=== PATIENT | female | born 1960 | race Caucasian/White ===

== ENCOUNTER 2016-12-21 11:13 | Emergency (ER) | payer OTHER ==
[~2016-12-21] VITALS: Ht 167.6 cm; Wt 87.1 kg
[2016-12-21] MEDS ORDERED: IV NORMAL SALINE 1,000ML 1,000 ML IV SCH (11:25)
--- NOTE | 2016-12-21 11:30 | ED.ADGEN ---
Past History Past Medical History: Diabetes Past Surgical History: Hysterectomy, Knee Replacement, Other Alcohol Use: None Drug Use: None Adult General HPI HPI Patient is a 56-year-old woman, history of type 2 diabetes mellitus managed with metformin, who presents the emergency department with a complaint of abdominal pain worsening since yesterday. Patient states that yesterday the pain began in her mid abdominal region, but slowly began to move downward to her right lower quadrant. She states the pain has become much more intense, associated with nausea and vomiting, and with a fever yesterday. She states that she does have pain with motion. She denies any chest pain, any shortness of breath, any focal weakness, numbness, tingling, rashes, sick contacts or exposures, ingestions or injuries. No urinary complaints. Last bowel movement was this morning and was normal. Patient is status post hysterectomy, 22 years ago, but is uncertain if her appendix was removed at that time. Review of Systems Review of Systems Constitutional: Fever. Subjective yesterday. Eyes: Denies change in visual acuity, redness, or eye pain [] HENT: Denies nasal congestion or sore throat [] Respiratory: Denies cough or shortness of breath [] Cardiovascular: No additional information not addressed in HPI [] GI: Abdominal pain, localizing to the right lower quadrant associated with nausea, vomiting, fever. : Denies dysuria or hematuria [] Musculoskeletal: Denies back pain or joint pain [] Integument: Denies rash or skin lesions [] Neurologic: Denies headache, focal weakness or sensory changes [] Endocrine: Denies polyuria or polydipsia [] Current Medications Current Medications Current Medications Medications (Trade) Dose Ordered Sig/Jadyn Start Time Stop Time Status Last Admin Dose Admin Fentanyl Citrate (Fentanyl 2ml Vial) 50 mcg PRN Q15MIN PRN 12/21/16 11:30 12/22/16 11:29 12/21/16 14:14 50 MCG Iohexol (Omnipaque 300 Mg/ml) 75 ml 1X ONCE 12/21/16 11:45 12/21/16 11:46 DC 12/21/16 12:13 75 ML Ondansetron HCl (Zofran) 4 mg 1X ONCE 12/21/16 14:10 12/21/16 14:12 DC Piperacillin Sod/ Tazobactam Sod (Zosyn Per Pharmacy) 1 each PRN DAILY PRN 12/21/16 12:45 Piperacillin Sod/ Tazobactam Sod (Zosyn) 3.375 gm STK-MED ONCE 12/21/16 12:47 12/21/16 12:48 DC Piperacillin Sod/ Tazobactam Sod 3.375 gm/Sodium Chloride 50 ml @ 100 mls/hr 1X ONCE 12/21/16 13:00 12/21/16 13:29 DC 12/21/16 12:54 100 MLS/HR Sodium Chloride 50 ml @ As Directed STK-MED ONCE 12/21/16 12:47 12/21/16 12:48 DC Allergies Allergies Allergies Coded Allergies Type Severity Reaction Last Updated Verified No Known Drug Allergies 12/21/16 No Physical Exam Physical Exam Constitutional: Well developed, well nourished, no acute distress, non-toxic appearance. [] HENT: Normocephalic, atraumatic, bilateral external ears normal, oropharynx moist, no oral exudates, nose normal. [] Eyes: PERRLA, EOMI, conjunctiva normal, no discharge. [] Neck: Normal range of motion, no tenderness, supple, no stridor. [] Cardiovascular:Heart rate regular rhythm, no murmur, S1, S2, no rubs or gallops. [] Lungs & Thorax: Bilateral breath sounds clear to auscultation, no wheezing, rhonchi, rales. No chest wall crepitus or tenderness. [] Abdomen: Bowel sounds present, soft, well-healed surgical incisions noted from hysterectomy, positive tenderness at McBurney's point, patient with positive Rovsing sign, positive rebound and guarding, no rigidity, no masses, no pulsatile masses. [] Skin: Warm, dry, no erythema, no rash. [] Back: No tenderness, no CVA tenderness. [] Extremities: No tenderness, no cyanosis, no clubbing, ROM intact, no edema. [] Neurologic: Alert and oriented X 3, normal motor function, normal sensory function, no focal deficits noted. [] Psychologic: Affect normal, judgement normal, mood normal. [] Current Patient Data Vital Signs Vital Signs Date Time Temp Pulse Resp B/P (MAP) Pulse Ox O2 Delivery O2 Flow Rate FiO2 12/21/16 14:14 16 98 12/21/16 12:26 73 153/54 (87) Room Air 12/21/16 11:22 98.2 Lab Results Laboratory Tests Test 12/21/16 11:29 White Blood Count 15.5 x10^3/uL (4.0-11.0) H Red Blood Count 4.94 x10^6/uL (3.50-5.40) Hemoglobin 14.9 g/dL (12.0-15.5) Hematocrit 43.9 % (36.0-47.0) Mean Corpuscular Volume 89 fL (79-100) Mean Corpuscular Hemoglobin 30 pg (25-35) Mean Corpuscular Hemoglobin Concent 34 g/dL (31-37) Red Cell Distribution Width 13.0 % (11.5-14.5) Platelet Count 229 x10^3/uL (140-400) Neutrophils (%) (Auto) 81 % (31-73) H Lymphocytes (%) (Auto) 13 % (24-48) L Monocytes (%) (Auto) 6 % (0-9) Eosinophils (%) (Auto) 0 % (0-3) Basophils (%) (Auto) 0 % (0-3) Neutrophils # (Auto) 12.6 x10^3uL (1.8-7.7) H Lymphocytes # (Auto) 2.0 x10^3/uL (1.0-4.8) Monocytes # (Auto) 0.9 x10^3/uL (0.0-1.1) Eosinophils # (Auto) 0.1 x10^3/uL (0.0-0.7) Basophils # (Auto) 0.0 x10^3/uL (0.0-0.2) Urine Collection Type Unknown Urine Color Yellow Urine Clarity Clear Urine pH 7.0 Urine Specific Viola 1.020 Urine Protein Neg (NEG-TRACE) Urine Glucose (UA) 100 mg/dL (NEG) Urine Ketones (Stick) Neg mg/dL (NEG) Urine Blood Mod (NEG) Urine Nitrite Neg (NEG) Urine Bilirubin Neg (NEG) Urine Urobilinogen Dipstick 2 mg/dL (0.2 mg/dL) Urine Leukocyte Esterase Neg (NEG) Urine RBC 6-10 /HPF (0-2) Urine WBC Occ /HPF (0-4) Urine Squamous Epithelial Cells Few /LPF Urine Transitional Epithelial Cells Occ /LPF Urine Bacteria 0 /HPF (0-FEW) Urine Mucus Slight /LPF Sodium Level 137 mmol/L (136-145) Potassium Level 3.8 mmol/L (3.5-5.1) Chloride Level 101 mmol/L (98-107) Carbon Dioxide Level 27 mmol/L (21-32) Anion Gap 9 (6-14) Blood Urea Nitrogen 10 mg/dL (7-20) Creatinine 1.0 mg/dL (0.6-1.0) Estimated GFR (Cockcroft-Gault) 57.8 BUN/Creatinine Ratio 10 (6-20) Glucose Level 199 mg/dL (70-99) H Calcium Level 9.0 mg/dL (8.5-10.1) Total Bilirubin 0.8 mg/dL (0.2-1.0) Aspartate Amino Transferase (AST) 16 U/L (15-37) Alanine Aminotransferase (ALT) 23 U/L (14-59) Alkaline Phosphatase 72 U/L (46-116) Total Protein 7.7 g/dL (6.4-8.2) Albumin 4.1 g/dL (3.4-5.0) Albumin/Globulin Ratio 1.1 (1.0-1.7) Lipase 73 U/L (73-393) EKG EKG EC: Sinus rhythm, heart rate 71 bpm, upright axis, QTC of 400, CO 146, QRS of 84, T-wave flattening noted in lead 3, no ST elevations or depressions, no other abnormalities identified. As interpreted by me. No prior for comparison. Radiology/Procedures Radiology/Procedures [][address] [address] IMAGING REPORT Signed PATIENT: MARINA GONCALVES ACCOUNT: [id number] : 1960 LOCATION: ER AGE: 56 SEX: F EXAM STATUS: REG ER ORD. PHYSICIAN: ALPHONSO VALLEJO DO REASON: RLQ pain/n/v/fever PROCEDURE: CT ABD PELV W/ IV CONTRST ONLY Indication: Right lower quadrant pain with fever and vomiting. Axial imaging through the abdomen and pelvis was performed after the administration of intravenous contrast. The lung bases are clear. There is a large hiatal hernia. The liver contains 2 low densities which are indeterminate within the right lobe. The smaller lesion is anteriorly located measuring 1.4 cm. The more posterior lesion is 2.5 cm. No ductal dilatation is seen. The gallbladder is unremarkable. The pancreas and spleen are unremarkable. No adrenal mass is detected. Kidneys are unremarkable. Aorta is nonaneurysmal. Inflammatory changes are identified in the right lower quadrant. The appendix appears to be thick-walled and dilated. There is periappendiceal inflammation and findings are consistent with acute appendicitis. No fluid collection or abscess is seen. No bowel obstruction. The bladder is unremarkable. Impression: 1. Findings consistent with acute appendicitis. There is no evidence of abscess formation or bowel obstruction. 2. Indeterminate liver lesions. Liver ultrasound could be performed on a nonemergent basis for further characterization. DICTATED AND SIGNED BY: EARNEST AGUAYO MD DATE: 12/21/16 1224 CC: JENNIFER DUKE APRN; ALPHONSO VALLEJO DO ~ Course & Med Decision Making Course & Med Decision Making Pertinent Labs and Imaging studies reviewed. (See chart for details) CT of abdomen and pelvis reveals evidence consistent with acute appendicitis, nonperforated. Patient with a leukocytosis of 15.5, electrolytes and renal function within normal limits. I did discuss findings with patient at bedside, she is agreeable for transfer to [facility] for surgical intervention, patient initiated on Zosyn in the emergency department without issue. I spoke with Dr. Dotson of general surgery, who requests to be contacted when the ambulance leads and the emergency department, plan to take the patient to the OR upon arrival at [facility]. I spoke with Dr. Mitchell of internal medicine, patient was accepted to her service as a full admission to the medical telemetry floor, with plan for surgical intervention symptom management and monitoring. Patient transported from the emergency department via EMS without issue. Final Impression Final Impression [] Problems: Dragon Disclaimer Dragon Disclaimer This electronic medical record was generated, in whole or in part, using a voice recognition dictation system. Departure: Impression: Primary Impression: Acute appendicitis Disposition: XFER OTHER Condition: IMPROVED ALPHONSO VALLEJO DO Dec 21, 2016 11:30
[2016-12-21] MEDS: fentaNYL PF 100 MCG/2 ML VIAL IV PRN ×3 (11:44→14:14)
[2016-12-21] MEDS ORDERED: IOHEXOL 300 MG/ML 75 ML VIAL. IV ONE (11:45)
--- NOTE | 2016-12-21 11:51 | EKG ---
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 RI6.01 Unconfirmed report No previous ECG available for comparison Electronically Signed On 12-24-2016 9:52:23 CDT by Lamont Mclaughlin
[2016-12-21 11:56] LABS: BASO % 0 % (0-3); EOS # 0.1 x10^3/uL (0.0-0.7); EOS % 0 % (0-3); HEMATOCRIT 43.9 % (36.0-47.0); HEMOGLOBIN 14.9 g/dL (12.0-15.5); LYMPH % 13 % (24-48); MEAN CORPUSCULAR HEMOGLOBIN 30 pg (25-35); MEAN CORPUSCULAR HGB CONC 34 g/dL (31-37); MEAN CORPUSCULAR VOLUME 89 fL (79-100); MONO # 0.9 x10^3/uL (0.0-1.1); MONO % 6 % (0-9); NEUT # 12.6 x10^3uL (1.8-7.7); NEUT % 81 % (31-73); PLATELET COUNT 229 x10^3/uL (140-400); RED BLOOD COUNT 4.94 x10^6/uL (3.50-5.40); WHITE BLOOD COUNT 15.5 x10^3/uL (4.0-11.0)
[2016-12-21 12:00] LABS: BILIRUBIN,URINE NEG (NEG); CLARITY,URINE CLEAR; COLOR,URINE YELLOW; GLUCOSE,URINE 100 mg/dL (NEG); NITRITE,URINE NEG (NEG); UROBILINOGEN,URINE 2 mg/dL (0.2 mg/dL)
[2016-12-21] MEDS ORDERED: ONDANSETRON PF 4 MG/2 ML VIAL. IV ONE ×2 (12:00→14:10)
[2016-12-21 12:01] LABS: BACTERIA,URINE 0 /HPF (0-FEW); SQUAMOUS EPITHELIAL CELL,UR FEW /LPF; WBC,URINE OCC /HPF (0-4)
[2016-12-21 12:03] LABS: ALBUMIN 4.1 g/dL (3.4-5.0); ALBUMIN/GLOBULIN RATIO 1.1 (1.0-1.7); GFR 57.8; POTASSIUM 3.8 mmol/L (3.5-5.1); TOTAL BILIRUBIN 0.8 mg/dL (0.2-1.0); TOTAL PROTEIN 7.7 g/dL (6.4-8.2)
[2016-12-21 12:26] VITALS: BP 153/54
--- NOTE | 2016-12-21 12:31 | RAD ---
Indication: Right lower quadrant pain with fever and vomiting. Axial imaging through the abdomen and pelvis was performed after the administration of intravenous contrast. The lung bases are clear. There is a large hiatal hernia. The liver contains 2 low densities which are indeterminate within the right lobe. The smaller lesion is anteriorly located measuring 1.4 cm. The more posterior lesion is 2.5 cm. No ductal dilatation is seen. The gallbladder is unremarkable. The pancreas and spleen are unremarkable. No adrenal mass is detected. Kidneys are unremarkable. Aorta is nonaneurysmal. Inflammatory changes are identified in the right lower quadrant. The appendix appears to be thick-walled and dilated. There is periappendiceal inflammation and findings are consistent with acute appendicitis. No fluid collection or abscess is seen. No bowel obstruction. The bladder is unremarkable. Impression: 1. Findings consistent with acute appendicitis. There is no evidence of abscess formation or bowel obstruction. 2. Indeterminate liver lesions. Liver ultrasound could be performed on a nonemergent basis for further characterization.
[2016-12-21] MEDS ORDERED: PIP/TAZO PER PHARMACY MC PRN (12:45)
[2016-12-21] MEDS ORDERED: PIPERACILLIN/TAZOBACTAM 3.375 GM VIAL IV ONE (12:47)
[2016-12-21] MEDS ORDERED: IV NORMAL SALINE 50ML 50 ML ONE (12:47)
[2016-12-21] MEDS ORDERED: PIPERACILLIN/TAZOBACTAM 3.375 GM in IV NORMAL SALINE 50ML 50 ML IV ONE (13:00)
== END 2016-12-21 14:15 | disposition short-term general hospital (02) ==
LOC: ER 11:13
DX: K35.80 Unspecified acute appendicitis (principal); E11.9 Type 2 diabetes mellitus without complications; Z90.49 Acquired absence of other specified parts of digestive tract
CPT/HCPCS: 36415; 74177; 80053; 81001; 83690; 85027; 93005; 96361; 96365; 96375; 96376; 99285; J2405; J2543; J3010; Q9967; J7030

== ENCOUNTER → 2018-06-01 | Outpatient (CLI) | payer OTHER ==
[~2018-06-01] MED LIST: IOHEXOL 240 MG/ML 50ML VIAL. ONE; IOHEXOL 300 MG/ML 75 ML VIAL. IV ONE
[2018-06-01 09:55] LABS: CALCIUM 9.4 mg/dL (8.5-10.1); GFR 57.6; POTASSIUM 4.1 mmol/L (3.5-5.1)
--- NOTE | 2018-06-01 14:07 | RAD ---
PQRS Compliance statement: One or more of the following individualized dose reduction techniques were utilized for this examination: 1. Automated exposure control. 2. Adjustment of the mA and/or kV according to patient size. 3. Use of iterative reconstruction technique. Indication:Ventral hernia, umbilical pain TECHNIQUE: CT abdomen and pelvis with IV contrast with multiplanar reformats. COMPARISON: 12/21/2016 FINDINGS: Heart is normal in size. No pericardial or pleural effusion. Clear lung bases. Moderate sliding hiatal hernia. Diffuse hepatic steatosis. Spleen, gallbladder, pancreas, adrenals and kidneys are within normal limits. No enlarged retroperitoneal or pelvic adenopathy. No free pelvic fluid or ascites. No bowel obstruction. Urinary bladder within normal limits. Status post hysterectomy. Umbilical and supraumbilical omental fat-containing multiple contiguous and noncontiguous hernias are seen which are new from previous exam from December 2016. The medical hernia measures 2.9 x 3.6 cm with neck measuring 1.5 cm. The supraumbilical hernia measures approximately 6.7 x 1.8 cm (transverse, AP) with neck measuring 4.5 cm. No herniation of bowel loops seen. No pneumatosis intestinalis. No suspicious bony lesion. IMPRESSION: 1. Recurrence of umbilical fat-containing hernia as described above. 2. Hepatic steatosis. 3. Moderate sliding hiatal hernia. Electronically signed by: Carl Hooker DO (06/01/2018 2:04 PM) [id number]
== END | disposition home or self-care (01) ==
LOC: CT 09:04
PROVIDERS: ATTEND Surgery
DX: K42.9 Umbilical hernia without obstruction or gangrene (principal); K76.0 Fatty (change of) liver, not elsewhere classified; K44.9 Diaphragmatic hernia without obstruction or gangrene; Z90.710 Acquired absence of both cervix and uterus
CPT/HCPCS: 36415; 74177; 80048; Q9966; Q9967

== ENCOUNTER → 2020-05-01 | Outpatient (CLI) | payer OTHER ==
--- NOTE | 2020-05-02 13:17 | RAD ---
DATE: 05/01/2020 8:43 AM EXAM: DIGITAL SCREEN BILAT W/CAD HISTORY: Screening COMPARISON: 10/13/2014 Bilateral full field craniocaudal and mediolateral oblique images were obtained using digital technique. Bilateral X CCL views were also obtained. This study was interpreted with the benefit of Computerized Aided Detection (CAD). FINDINGS: Breast Density: SCATTERED The breast parenchyma shows scattered fibroglandular densities. Breast parenchyma level B No suspicious masses, microcalcifications or architectural distortion is present to suggest malignancy in either breast. The visualized axillae are unremarkable. IMPRESSION: No mammographic evidence of malignancy. BI-RADS CATEGORY: 1 NEGATIVE RECOMMENDED FOLLOW-UP: 12M 12 MONTH FOLLOW-UP Annual screening mammography is recommended, unless clinically indicated sooner based on symptoms or change in physical exam. PQRS compliance statement: Patient information was entered into a reminder system with a target due date for the next mammogram. Mammography is a sensitive method for finding small breast cancers, but it does not detect them all and is not a substitute for careful clinical examination. A negative mammogram does not negate a clinically suspicious finding and should not result in delay in biopsying a clinically suspicious abnormality. "Our facility is accredited by the [employer] Mammography Program."
--- NOTE | 2020-05-04 09:26 | RAD ---
Chest wall ultrasound INDICATION: Subcutaneous nodule in the right upper chest, just below the clavicle. COMPARISON: None. TECHNIQUE: Grayscale and color Doppler imaging of the right chest wall in the area of palpable concern is performed. FINDINGS: An oval, parallel orientation circumscribed 2.9 cm wide, 1.0 cm tall and 0.7 cm long mass is present in the subcutaneous fat of the superior right chest wall anteriorly, well removed from the breast tissue. No associated skin thickening or retraction. Minimal internal vascularity. IMPRESSION: Oval mass with sonographic imaging features compatible with a benign lipoma. Recommend clinical management which may include excisional biopsy if there are clinically suspicious features. Electronically signed by: Jasper Ureña MD (05/04/2020 9:23 AM) [id number]
== END ==
LOC: MAMMO 08:34
PROVIDERS: ATTEND Physician Assistant
DX: Z12.31 Encounter for screening mammogram for malignant neoplasm of breast (principal); Z00.00 Encounter for general adult medical examination without abnormal findings; R22.2 Localized swelling, mass and lump, trunk
CPT/HCPCS: 76882; 77067

== ENCOUNTER → 2020-05-25 | Outpatient (CLI) | payer OTHER | LOC: LAB 07:40 | PROVIDERS: ATTEND Nurse Anesthetist, Certified Registered | DX: Z01.812 Encounter for preprocedural laboratory examination (principal); Z20.828 Contact with and (suspected) exposure to other viral communicable diseases | CPT/HCPCS: U0003 ==

== ENCOUNTER → 2020-05-29 | Day surgery (SDC) | payer OTHER ==
[~2020-05-29] MED LIST changes: +BUPIVACAINE-EPI 0.25%-1:200000 MPF 30 ML VIAL. ONE; -IOHEXOL 240 MG/ML 50ML VIAL. ONE; -IOHEXOL 300 MG/ML 75 ML VIAL. IV ONE
--- NOTE | 2020-05-29 11:34 | PDOC4 ---
Operative Report DATE May 29, 2020 at 1132 Preop Diagnosis Right chest wall mass Post-op Diagnosis Same Operation Performed Excision of right chest wall mass Patient is a 59-year-old female complaining of enlarging mass on her right chest wall with pain on palpation. Procedure of excision was explained to the patient detail was benefits were also discussed including bleeding infection alternatives to this procedure also discussed with the patient who seemed to understand and gave both verbal and written consent to have the procedure performed. Patient was taken to the operating room minors placed in the supine position area over the mass was prepped and draped in usual sterile fashion using ChloraPrep this was then then injected with quarter percent Marcaine with epinephrine once the area was anesthetized and incision was made 15 blade scalpel is carried down through the subcutaneous tissue using Metzenbaum scissors to sharply excise the mass which appeared to be a lipoma approximately 2 cm in diameter. Wound was then closed in a single layer 4-0 subcuticular Monocryl Mastisol Steri-Strips and island dressing were applied. Patient tolerated procedure well was taken to recovery in stable condition discharged home in stable condition all sponge instrument counts listed as correct est imated blood loss 5 mL Surgeon Jae ANESTHESIA PROPOSED: LOCAL Blood Loss 5 mL Specimen Right chest wall mass Complications None JUAN LUIS PRABHAKAR MD May 29, 2020 11:34
--- NOTE | 2020-05-29 11:35 | DISCH ---
DISCHARGE INSTRUCTIONS-DC Condition on Discharge Condition on Discharge: Stable Activity after Discharge Activity Instructions for Disc: No restrictions Other activity instructions: May shower in 24 hours Diet after Discharge Diet after Discharge: Regular Contacting the DRLeyla after DC Call your doctor for: If your condition worsens Follow-Up Follow up with: Dr. Prabhakar in 2 weeks JUAN LUIS PRABHAKAR MD May 29, 2020 11:35
[2020-05-29 11:40] VITALS: BP 133/72
--- NOTE | 2020-05-31 15:08 | PATHOLOGY ---
[facility] Accession Number: [id number] . 01 Material submitted: . chest - RIGHT CHEST WALL LIPOMA. Modifiers: right, wall . 02 Diagnosis: Segments of fibroadipose tissue, right chest wall: - Lipoma. 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 02 Electronically signed: . Omer Lopez MD, Pathologist NPI- [id number] . 01 Gross description: . The specimen is received in formalin, labeled "Bridgette Sánchez, R chest wall lipoma". Received are multiple segments of yellow-kim lobulated tissue measuring 4.1 x 2.3 x 1.1 cm in aggregate dimensions. Sectioning reveals bright yellow cut surfaces with no grossly distinct nodules or lesions. The specimen is submitted representatively in cassette A1. ([facility]; 05/30/2020) QA/[facility] 05/30/2020 1404 Local . 02 Pathologist provided ICD-10: D17.1 . 02 CPT . 570620 Specimen Comment: A courtesy copy of this report has been sent to [phone], [phone] Specimen Comment: [id number] Specimen Comment: Report sent to / DR IRVING Performed at: 01 [facility] [address], [place], [place] [id number] MD Rhett Hoover MD Phone: [phone] Performed at: 02 [facility] [address] [place], [place] [id number] MD Omer Lopez MD Phone: [phone]
== END | disposition home or self-care (01) ==
LOC: SURG 11:33
PROVIDERS: ATTEND Surgery
DX: R22.2 Localized swelling, mass and lump, trunk (principal); D17.1 Benign lipomatous neoplasm of skin and subcutaneous tissue of trunk; E11.9 Type 2 diabetes mellitus without complications; Z90.710 Acquired absence of both cervix and uterus; Z90.49 Acquired absence of other specified parts of digestive tract
CPT/HCPCS: 21555; J3490